=== PATIENT | female | born 1940 | race Caucasian/White ===

== ENCOUNTER 2016-05-28 06:26 | Inpatient (IN) | payer MEDICARE, OTHER ==
--- NOTE | ~2016-05-28 | HP ---
History And Physical [facility] [address] [place]. [address] NAME: THEODORE BERMUDEZ : 38 STATUS : ADM Juan Manuel PAT#: [id number] AGE: 76 ADM/REG DATE : 05/28/16 MR#: [id number] REPORT SERV DATE: 05/28/16 DICTATED BY: DATE: REPORT STATUS : Draft TRANSCRIBED BY: MODL DATE: 05/28/16 DATE OF ADMISSION: 05/28/2016 CHIEF COMPLAINT: Nausea, vomiting, and diarrhea. HISTORY OF PRESENT ILLNESS: Ms. Bermudez is a 76-year-old white female, patient of Dr. Rivera, status post renal transplant in 2009 at [facility]. She apparently was having quite significant nausea and vomiting last week, felt secondary to constipation, was prescribed the same admission she had taken before when she had colonoscopy. After this, she developed significant diarrhea, was unable to keep anything down with her nausea, vomiting, and diarrhea and felt though she was very dehydrated, therefore, presented to the emergency department. It was noted she is on Maxzide at home and she is also prescribed Cipro by her PCP. Creatinine on admission 1.6. CT of the abdomen negative for any abdominal findings, and in the lower chest portion, there were some abnormal findings, and a CT of the chest is recommended. Nausea and vomiting are still present this afternoon. No abdominal pain. She does have lower extremity pain with postherpetic neuralgia. She denies any dysuria or hematuria. PAST MEDICAL HISTORY: Irritable bowel syndrome, transplant, hypertension, hyperlipidemia, polyomavirus, diabetes, postherpetic neuralgia, septic bursitis, and hyperlipidemia. ALLERGIES: SULFA, MORPHINE, AND CODEINE. SOCIAL HISTORY: She is . No tobacco, alcohol, or illicit drug use. FAMILY MEDICAL HISTORY: Lung cancer and hypertension. MEDICATIONS: At home: Acetaminophen, albuterol, Cipro, fentanyl, fexofenadine, Advair, Dilaudid, meloxicam, metoprolol, multivitamin, CellCept, Mycostatin, pravastatin, prednisone, Prograf, and Maxzide. REVIEW OF SYSTEMS: A 12-point review of systems was obtained and negative with the exception of that in the HPI. PHYSICAL EXAMINATION: VITAL SIGNS: Temperature 97.7, blood pressure 158/88, pulse 80, respiratory rate 16, and O2 saturation is 100%. GENERAL: This is an elderly white female. She is quite drowsy right now, just had pain medicine, but will awaken and answer questions. HEENT: Normocephalic and atraumatic. Conjunctivae clear. Sclerae anicteric. Pupils are equal and round. Oral mucosa is dry. NECK: Without any lymphadenopathy. Neck veins flat. RESPIRATIONS: Even and unlabored. Breath sounds clear to auscultation. HEART: Rate is regular. No murmur, rub, or gallop. ABDOMEN: Soft and nontender. Bowel sounds are active. No masses. No hepatosplenomegaly. History And Physical [address] [place]. [address] NAME: THEODORE BERMUDEZ : 38 STATUS : ADM Juan Manuel PAT#: [id number] AGE: 76 ADM/REG DATE : 05/28/16 MR#: [id number] REPORT SERV DATE: 05/28/16 DICTATED BY: DATE: REPORT STATUS : Draft TRANSCRIBED BY: MODL DATE: 05/28/16 No bruits. No CVA tenderness. BACK: Within normal limits. EXTREMITIES: No edema, cyanosis, or clubbing. SKIN: Pale, warm, dry, and intact. No unusual rash or skin lesions. NEUROLOGIC: Generalized weakness. No focal deficits. Mood and affect, pleasant and appropriate. PERTINENT LABS AND X-RAYS: Chest x-ray with some atelectasis to the right lower lobe. CT of the abdomen: No acute GI obstruction. There is chronic bronchiolitis of the right lung, diffuse nodular pattern through the right lung, question possibility of pneumonia and if this cannot exclude possibility of presentation of neoplasm, may wish to consider CT scan of chest. UA: No protein, small amount of blood, 21 red blood cells per high-powered field, 29 white blood cells, no bacteria. Lactate 1.7. Sodium 143, potassium 3.6, chloride 103, CO2 of 28, BUN of 26, creatinine 1.6. Calcium 9.1. Albumin of 3.6. LFTs are unremarkable. Lipase 340. WBCs 11.5, H and H of 14 and 46, platelets 208,000. IMPRESSION: 1. Nausea vomiting, ongoing. 2. Constipation and followed by significant diarrhea. 3. Shingles with post herpetic neuralgia. 4. Acute kidney injury on renal transplant with baseline creatinine of 2. 5. Abnormal and chest on CT of the abdomen. CT of the chest is recommended. PLAN: IV fluids. Labs. GI consult. Follow up labs tomorrow. Ask GI to see for antiemetics. Further orders and recommendations pending clinical course. MARIN/JOSE ANGEL HARVINDER Panda / [id number] CC: Randy Fitch Jr, M.D.
--- NOTE | ~2016-05-28 | HP ---
History And Physical [address] [place]. [address] NAME: THEODORE BERMUDEZ : 38 STATUS : DIS IN PAT#: [id number] AGE: 76 ADM/REG DATE : 05/28/16 MR#: [id number] REPORT SERV DATE: 05/30/16 DICTATED BY: JONNIE MCKEON DATE: 05/30/16 REPORT STATUS : Draft TRANSCRIBED BY: MODL DATE: 05/30/16 DATE OF ADMISSION: 05/28/2016 CHIEF COMPLAINT: Groin and back pain. HISTORY OF PRESENT ILLNESS: This is a 76-year-old female, who by her history fell while standing at the stove about 6 weeks ago. She has had some groin pain and back pain since. She has been admitted for other reasons and her CT scan yesterday that found pubis and sacral fracture, questionable age. She denies pain or injury elsewhere or other orthopedic concerns at this point. ALLERGIES: SULFA, MORPHINE, CODEINE. MEDICATIONS: See chart. PAST MEDICAL HISTORY: 1. Hypercholesterolemia. 2. Hypertension. 3. Lung history, she takes inhalers. 4. Arthritis. 5. Irritable bowel syndrome. 6. GERD. 7. History renal failure with transplant in 2009. 8. History of skin cancer. PAST SURGICAL HISTORY: Right renal transplant 04/27/2009; hysterectomy in 1973; cholecystectomy, sinus surgery, colonoscopy, lateral meniscus repair 1987; back surgery in 2016. SOCIAL HISTORY: . No cigarettes, alcohol, or illicit drug use. FAMILY HISTORY: No anesthetic complications. REVIEW OF SYSTEMS: As above. PHYSICAL EXAMINATION: GENERAL: She is alert and oriented x3. No apparent distress. HEENT: Atraumatic, normocephalic. NECK: Supple. CHEST: Symmetric, nontender. LUNGS: Per Medicine evaluation. CV: Regular. ABDOMEN: Soft. No mass. EXTREMITIES: Both upper extremities, both lower extremity without acute trauma. CT scan healing pubis and sacral fracture. History And Physical [address] [place]. [address] NAME: THEODORE BERMUEDZ : 39 STATUS : DIS IN PAT#: [id number] AGE: 76 ADM/REG DATE : 05/28/16 MR#: [id number] REPORT SERV DATE: 05/30/16 DICTATED BY: JONNIE MCKEON DATE: 05/30/16 REPORT STATUS : Draft TRANSCRIBED BY: MODMehdi DATE: 05/30/16 ASSESSMENT: Healing pubic and sacral fracture, probably 6 weeks old. PLAN: Continue weightbearing as tolerated. Activity as tolerated. Analgesics as needed. I will see her back on an as needed basis. We had a lengthy discussion about this. WTB/JOSE ANGEL Fartun Mckeon M.D. / [id number] CC: Randy Fitch Jr, M.D.
--- NOTE | ~2016-05-28 | DS ---
Discharge Summary [facility] [address] [place]. [address] NAME: THEODORE BERMUDEZ : 38 STATUS : DIS IN PAT#: [id number] AGE: 76 ADM/REG DATE : 05/28/16 MR#: [id number] REPORT SERV DATE: 05/31/16 DICTATED BY: KELVIN ELIAS DATE: 05/30/16 REPORT STATUS : Draft TRANSCRIBED BY: JOSE ANGEL DATE: 05/30/16 ADMISSION DATE: 05/28/2016 DISCHARGE DATE: 05/30/2016 INDICATION FOR HOSPITALIZATION: Protracted nausea and vomiting and diarrhea. DISCHARGE DIAGNOSES: 1. Constipation with laxative use precipitating protracted diarrhea and associated with nausea and vomiting. Primarily medication effect. 2. Acute kidney injury, superimposed on donor renal transplant. 3. donor renal transplant in 2009. 4. Anemia. 5. Hyperlipidemia. 6. Hypertension. 7. History of polyoma virus. 8. Type 2 diabetes mellitus. 9. Right pubic ramus fracture. 10.Post herpetic neuralgia. 11.Bronchiectasis on CT scan. 12.Urinary tract infection, repeat cultures no growth. HOSPITAL COURSE: Ms. Bermudez is a 76-year-old female, who was admitted with nausea and vomiting which was apparently precipitated by constipation over the weekend. She was prescribed Dulcolax and GoLYTELY with subsequent diarrhea which increased and became severe. The patient was on Cipro prescribed by her PCP for possible UTI and was also on Maxzide. Her admission creatinine was 1.6. CT scan of the abdomen was obtained in the emergency room and revealed chronic lung changes with bronchiectatic changes or bronchiectasis, which the patient was aware. Renal transplant was not obstructed and there was a fracture of the right pubic symphysis and inferior pubic rami fracture. She underwent subsequent chest x- ray, which demonstrated some chronic scarring in the right lung base. Subsequent CT scan of her chest confirmed bronchiectasis. She was initiated on IV fluids and antiemetic therapy. Her diarrhea gradually abated and her nausea and vomiting subsided. She was seen by GI and there was no change in therapy. Stool for C. diff was obtained and apparently negative. She was noted to have improvement in her creatinine to 1.0, which is at her baseline. Her magnesium was low and was supplemented prior to release. She had a hemoglobin of 11.6 at the time of release, WBC of 7.4. She was having no difficulty with p.o. intake when released. DISCHARGE MEDICATIONS: Albuterol inhaler two puffs p.r.n., Cipro 500 mg p.o. b.i.d. x3 days, Duragesic patch 75 mcg apply q.72 hours, Dara 180 mg daily, Advair Diskus 100/50 one puff twice daily, Dilaudid capsules 2 mg q.6 hours p.r.n., Mobic 15 mg p.o. daily. Both Mobic and Dilaudid were to be held if no significant pain. Lopressor 25 mg p.o. twice daily, Theragran-M one daily, CellCept 1 g twice daily, Mycostatin powder twice daily to groin area, Pravachol 20 mg daily, prednisone 5 mg daily, Prograf 0.5 mg twice daily, Maxzide 25 one tab daily. Discharge Summary [address] [address] NAME: THEODORE BERMUDEZ : 38 STATUS : DIS IN PAT#: [id number] AGE: 76 ADM/REG DATE : 05/28/16 MR#: [id number] REPORT SERV DATE: 05/31/16 DICTATED BY: KELVIN ELIAS DATE: 05/30/16 REPORT STATUS : Draft TRANSCRIBED BY: JOSE ANGEL DATE: 05/30/16 CONSULTANTS: GI and Orthopedics. FOLLOWUP: With Dr. Rivera in two-three weeks for transplant followup. Follow up with Dr. Alas in one month and schedule appointment with Dr. Sweeney for monitoring bronchiectasis in two-three months. ACTIVITY: Activity will be resumed per home regimen. DIET: Diet will be regular diet with no concentrated sweets. CG/JOSE ANGEL Kelvin Elias M.D. / [id number] CC: Randy Fitch Jr, M.D.
--- NOTE | ~2016-05-28 | CN ---
Consultation Report [facility] [address] [facility] [place]. [address] NAME: THEODORE BERMUDEZ : 38 STATUS : ADM Juan Manuel PAT#: [id number] AGE: 76 ADM/REG DATE : 05/28/16 MR#: [id number] REPORT SERV DATE: 05/29/16 DICTATED BY: KIA SANTOS DATE: 05/28/16 REPORT STATUS : Draft TRANSCRIBED BY: MODL DATE: 05/28/16 CONSULTATION DATE OF CONSULTATION: HISTORY OF PRESENT ILLNESS: This is a 76-year-old white female admitted with nausea and vomiting and had constipation and treated over the weekend with Dulcolax and GoLYTELY. Did develop diarrhea which became severe and now it is decreasing. Then developed as mentioned nausea and vomiting. No fever, no bleeding. History of GERD; status post cholecystectomy; hysterectomy; knee surgery; shingles with chronic pain beginning 2013; has a right renal transplant, on immunosuppressants; history of hypertension; osteoarthritis; last colonoscopy 2014 with polyp, diverticular disease; and has a family history of colon cancer. SOCIAL HISTORY: Negative EtOH or nicotine. CT abdomen and pelvis: Right renal transplant. The patient has a UTI, currently on Rocephin. PHYSICAL EXAMINATION: GENERAL: Elderly white female, alert. HEENT: Anicteric. NECK: Negative. CHEST: Clear to percussion. HEART: Regular rate, and rhythm. No murmur or gallop. ABDOMEN: Soft and nontender. Bowel sounds active. EXTREMITIES: Pertinent for arthritis. NEUROLOGIC: Grossly intact. ASSESSMENT: 1. Constipation treated and then began having diarrhea, now decreased. 2. Nausea, vomiting, and gastroesophageal reflux disease. 3. Status post renal transplant. 4. Shingles with chronic pain. 5. Hypertension. 6. Urinary tract infection. 7. Osteoarthritis. SUGGESTIONS: 1. C difficile is pending. 2. We will begin Protonix. 3. Clear liquids. 4. Continue current therapy as well. Thank you very much for the consultation. Consultation Report [place] [address] [address]. [address] NAME: THEODORE BERMUDEZ : 38 STATUS : ADM Juan Manuel PAT#: [id number] AGE: 76 ADM/REG DATE : 05/28/16 MR#: [id number] REPORT SERV DATE: 05/29/16 DICTATED BY: KIA SANTOS DATE: 05/28/16 REPORT STATUS : Draft TRANSCRIBED BY: MODL DATE: 05/28/16 TOMEKA/JOSE ANGEL Kia Santos M.D. / [id number] CC: Randy Fitch Jr, M.D.
[2016-05-28 05:05] LABS: BASOPHILS 0.4 %; BASOPHILS ABSOLUTE 0.05 10/3/uL (0.0-0.16); EOSINOPHILS 1.4 %; EOSINOPHILS ABSOLUTE 0.16 10/3/uL (0.0-0.53); IMMATURE GRANULOCYTES 0.5 %; IMMATURE GRANULOCYTES ABSOLUTE 0.06 10/3/uL (0.0-0.11); LYMPHOCYTES 23.6 %; LYMPHOCYTES ABSOLUTE 2.71 10/3/uL (0.67-4.30); MEAN CORPUS HGB CONC 31.6 g/dL (32.0-36.0); MEAN CORPUSCULAR HEMOGLOB 29.8 pg (26.0-34.0); MEAN CORPUSCULAR VOLUME 94.4 fL (80-100); MEAN PLATELET VOLUME 10.9 fL (9.2-13.0); MONOCYTES 9.7 %; MONOCYTES ABSOLUTE 1.12 10/3/uL (0.21-1.20); NEUTROPHILS 64.4 %; NEUTROPHILS ABSOLUTE 7.39 10/3/uL (2.02-8.40); RBC DISTRIBUTION WIDTH 15.4 % (12.0-16.0)
[2016-05-28 05:09] LABS: ER CBC TAT 0 Hrs 09 Mins; HEMATOCRIT 46.8 % (36.0-48.0); HEMOGLOBIN 14.8 g/dL (12.0-16.0); MANUAL DIFF NO %; PLATELET COUNT 289 10/3/uL (150-400); RED CELL COUNT 4.96 10/6/uL (4.0-5.6); WHITE BLOOD CELLS 11.5 10/3/uL (4.5-10.5)
[2016-05-28 05:22] LABS: CALCIUM, SERUM 9.1 MG/DL (8.5-10.4); CHLORIDE, SERUM 103 MMOL/L (96-112); CO2 (CARBON DIOXIDE) 28 MMOL/L (24-34); POTASSIUM, SERUM 3.6 MMOL/L (3.5-5.3); SGOT(AST) 32 U/L (5-40); SGPT(ALT) 26 U/L (5-65); SODIUM, SERUM 143 MMOL/L (135-148)
[2016-05-28 05:23] LABS: A/G RATIO 0.8 (0.7-1.9); ALBUMIN 3.6 G/DL (3.5-5.0); ALKALINE PHOSPHATASE 133 U/L (45-117); BUN (BLOOD UREA NITROGEN) 26 MG/DL (6-23); GFR AFRICAN AMERICAN 36 ML/MIN (>=60); GFR NON AFRICAN AMERICAN 31 ML/MIN (>=60); GLOBULIN 4.5 G/DL (2.5-4.1); GLUCOSE, SERUM 97 MG/DL (60-99); TOTAL BILIRUBIN 0.5 MG/DL (0-1.2); TOTAL PROTEIN 8.1 G/DL (6.0-8.5)
[2016-05-28 06:10] LABS: ASCORBIC ACID (UR NOT ORDER) NEG (NEG); BILIRUBIN, URINE NEGATIVE (NEG); ER URINALYSIS TAT 0 Hrs 00 Mins; KETONE, URINE NEGATIVE (NEG); LEUKOCYTE ESTERASE(NOT OR SMALL (NEG); NITRITE (URINE) NEG (NEG); WBC (NOT ORDERED) (RFLEX) 29 (0-5)
[~2016-05-28 06:26] MED LIST: ACET500CAP PO; ADVAIR100 INH; ADVAIR115P INH; ALIGN PO; ALLEGRA180 PO; AUG875 PO; BACDS PO; BACTROINT TOP; CALTRA600D PO; CEFT5 PO; CELLCEPT5 PO; CENTRUM PO; DIL2TAB PO; FISH OIL PO; FLONASE NAS; LIDODERM TOP; LOP25 PO; MAX25 PO; MULTIPLE VIT PO; MULTIVITAMI1 PO; NEUR100 PO; NEUR600 PO; NOR25 PO; OS500+D PO; P1 PO; P5 PO; PEP20 PO; PRAVAC PO; PRILOSEC40 MG PO; PROAIR HFA INH; PROGRAF0.5 PO; PROGRAF1 PO; RESTASIS OPH; SINGULAIR1 PO; STOOL SOFTEN100 MG PO; SYSTANE ULTR OPH; VANCO1P IV
[2016-05-28] MEDS ORDERED: *UNABLE2 (07:01)
[2016-05-28] MEDS ORDERED: CIP5 PO (12:53)
[2016-05-28] MEDS ORDERED: PROTONIX PO (12:54)
[2016-05-28] MEDS ORDERED: ZOFRAN4 PO (12:54)
[2016-05-28] MEDS ORDERED: MOBIC15 MG PO (12:55)
[2016-05-28] MEDS ORDERED: NYSTATPOW TOP (12:56)
[2016-05-28] MEDS ORDERED: DURA75 TOP (12:56)
[2016-05-28] MEDS ORDERED: DIL2TAB PO (12:56)
[2016-05-28] MEDS ORDERED: NOR50 PO (12:57)
[2016-05-28] MEDS ORDERED: MAX25 PO (12:58)
[2016-05-28] MEDS ORDERED: PROAIR HFA INH (13:17)
[2016-05-28] MEDS ORDERED: ACET500CAP PO (13:17)
[2016-05-28] MEDS ORDERED: ADVAIR100 INH (13:17)
[2016-05-28] MEDS ORDERED: LOP25 PO (13:18)
[2016-05-28] MEDS ORDERED: PROGRAF0.5 PO (13:18)
[2016-05-28] MEDS ORDERED: CELLCEPT5 PO (13:18)
[2016-05-28] MEDS ORDERED: P5 PO (13:18)
[2016-05-28] MEDS ORDERED: ALLEGRA180 PO (13:19)
[2016-05-28] MEDS ORDERED: PRAVAC PO (13:19)
[2016-05-28] MEDS ORDERED: THERGRANM PO (13:19)
[2016-05-29 05:58] LABS: BASOPHILS 0.8 %; BASOPHILS ABSOLUTE 0.06 10/3/uL (0.0-0.16); EOSINOPHILS 4.1 %; EOSINOPHILS ABSOLUTE 0.29 10/3/uL (0.0-0.53); HEMOGLOBIN 12.2 g/dL (12.0-16.0); IMMATURE GRANULOCYTES 0.8 %; IMMATURE GRANULOCYTES ABSOLUTE 0.06 10/3/uL (0.0-0.11); LYMPHOCYTES 26.4 %; LYMPHOCYTES ABSOLUTE 1.88 10/3/uL (0.67-4.30); MEAN CORPUS HGB CONC 31.4 g/dL (32.0-36.0); MEAN CORPUSCULAR VOLUME 95.6 fL (80-100); MEAN PLATELET VOLUME 11.1 fL (9.2-13.0); MONOCYTES 9.4 %; MONOCYTES ABSOLUTE 0.67 10/3/uL (0.21-1.20); NEUTROPHILS 58.5 %; NEUTROPHILS ABSOLUTE 4.16 10/3/uL (2.02-8.40); PLATELET COUNT 246 10/3/uL (150-400); RBC DISTRIBUTION WIDTH 15.5 % (12.0-16.0); RED CELL COUNT 4.07 10/6/uL (4.0-5.6); WHITE BLOOD CELLS 7.1 10/3/uL (4.5-10.5)
[2016-05-29 05:59] LABS: HEMATOCRIT 38.9 % (36.0-48.0); MANUAL DIFF NO %
[2016-05-29 06:17] LABS: CHLORIDE, SERUM 113 MMOL/L (96-112); CREATININE 1.11 MG/DL (0.55-1.02); GFR AFRICAN AMERICAN 55 ML/MIN (>=60); GFR NON AFRICAN AMERICAN 48 ML/MIN (>=60); GLUCOSE, SERUM 82 MG/DL (60-99); PHOSPHORUS, SERUM 3.3 MG/DL (2.5-4.5); SODIUM, SERUM 145 MMOL/L (135-148)
[2016-05-29 06:18] LABS: ALBUMIN 2.5 G/DL (3.5-5.0); BUN (BLOOD UREA NITROGEN) 14 MG/DL (6-23); CALCIUM, SERUM 7.7 MG/DL (8.5-10.4); CO2 (CARBON DIOXIDE) 22 MMOL/L (24-34); POTASSIUM, SERUM 4.8 MMOL/L (3.5-5.3)
[2016-05-30 05:28] LABS: BASOPHILS 0.3 %; BASOPHILS ABSOLUTE 0.02 10/3/uL (0.0-0.16); EOSINOPHILS 1.5 %; EOSINOPHILS ABSOLUTE 0.11 10/3/uL (0.0-0.53); HEMATOCRIT 37.5 % (36.0-48.0); HEMOGLOBIN 11.6 g/dL (12.0-16.0); IMMATURE GRANULOCYTES 0.5 %; IMMATURE GRANULOCYTES ABSOLUTE 0.04 10/3/uL (0.0-0.11); LYMPHOCYTES 15.4 %; LYMPHOCYTES ABSOLUTE 1.14 10/3/uL (0.67-4.30); MEAN CORPUS HGB CONC 30.9 g/dL (32.0-36.0); MEAN CORPUSCULAR HEMOGLOB 29.8 pg (26.0-34.0); MEAN CORPUSCULAR VOLUME 96.4 fL (80-100); MEAN PLATELET VOLUME 10.7 fL (9.2-13.0); MONOCYTES 9.9 %; MONOCYTES ABSOLUTE 0.73 10/3/uL (0.21-1.20); NEUTROPHILS 72.4 %; NEUTROPHILS ABSOLUTE 5.34 10/3/uL (2.02-8.40); PLATELET COUNT 212 10/3/uL (150-400); RBC DISTRIBUTION WIDTH 15.3 % (12.0-16.0); RED CELL COUNT 3.89 10/6/uL (4.0-5.6); WHITE BLOOD CELLS 7.4 10/3/uL (4.5-10.5)
[2016-05-30 05:36] LABS: MANUAL DIFF NO %
[2016-05-30 05:39] LABS: ALBUMIN 2.4 G/DL (3.5-5.0); BUN (BLOOD UREA NITROGEN) 12 MG/DL (6-23); CHLORIDE, SERUM 114 MMOL/L (96-112); CO2 (CARBON DIOXIDE) 23 MMOL/L (24-34); GFR AFRICAN AMERICAN 63 ML/MIN (>=60); GFR NON AFRICAN AMERICAN 54 ML/MIN (>=60); PHOSPHORUS, SERUM 2.6 MG/DL (2.5-4.5); POTASSIUM, SERUM 3.9 MMOL/L (3.5-5.3); SODIUM, SERUM 146 MMOL/L (135-148)
[2016-05-30 05:40] LABS: GLUCOSE, SERUM 99 MG/DL (60-99)
== END 2016-05-30 18:35 | disposition home or self-care (01) | DRG 683 ==
LOC: ER 06:26 → 1SO 06:34
PROVIDERS: Internal Medicine Nephrology; Nurse Practitioner; Nurse Practitioner Acute Care
DX: N17.9 Acute kidney failure, unspecified (principal); S32.591A Other specified fracture of right pubis, initial encounter for closed fracture; S32.10XA Unspecified fracture of sacrum, initial encounter for closed fracture; N39.0 Urinary tract infection, site not specified; B02.29 Other postherpetic nervous system involvement; Z94.0 Kidney transplant status; K58.1 Irritable bowel syndrome with constipation; R19.7 Diarrhea, unspecified; J47.9 Bronchiectasis, uncomplicated; E86.0 Dehydration; I10 Essential (primary) hypertension; K21.9 Gastro-esophageal reflux disease without esophagitis; E78.5 Hyperlipidemia, unspecified; E11.9 Type 2 diabetes mellitus without complications; B02.9 Zoster without complications; T47.4X5A Adverse effect of other laxatives, initial encounter; G89.29 Other chronic pain; M19.90 Unspecified osteoarthritis, unspecified site; Z79.1 Long term (current) use of non-steroidal anti-inflammatories (NSAID); Z79.899 Other long term (current) drug therapy; Z86.010 Personal history of colon polyps; Z91.81 History of falling; Z88.2 Allergy status to sulfonamides; Z88.5 Allergy status to narcotic agent
CPT/HCPCS: 71010; 74176; 80053; 80069; 81001; 83605; 83690; 83735; 85025; 87086; 93005; 94640; 96374; 96375; 99285; A9270-GY; C9113; J1200; J1980; J2405